=== PATIENT | male | born 1955 | race Caucasian/White ===

== ENCOUNTER 2020-03-05 04:59 | Inpatient (IN) ==
--- NOTE | 2020-02-07 15:49 | PAT Medication Instructions ---
Medication Instructions Date of Service February 07, 2020 Home Medications ascorbic acid (vitamin C) 1 g PO QAM brimonidine 1 drp OPHTHALMIC (EYE) BID cholecalciferol (vitamin D3) 10 mcg PO QAM dorzolamide (PF) 1 drp OPHTHALMIC (EYE) BID erythromycin 1 applic OPHTHALMIC (EYE) HS fluorometholone 1 drp OPHTHALMIC (EYE) QID garlic 500 mg PO QAM latanoprost (PF) 1 drp HS naproxen sodium [Aleve] 220 mg PO BID PRN sodium chloride 1 applic OPHTHALMIC (EYE) TID valacyclovir [Valtrex] 500 mg PO QAM vitamin E 400 unit PO QAM zinc 50 mg PO QAM STOP taking 2 weeks before surgery If surgery is within 2 weeks, stop taking as soon as possible. garlic 500 mg PO QAM vitamin E 400 unit PO QAM DO NOT take the morning of surgery ascorbic acid (vitamin C) 1 g PO QAM cholecalciferol (vitamin D3) 10 mcg PO QAM zinc 50 mg PO QAM Take morning of surgery With a small sip of water, OTHERWISE NOTHING TO EAT OR DRINK AFTER MIDNIGHT: brimonidine 1 drp OPHTHALMIC (EYE) BID dorzolamide (PF) 1 drp OPHTHALMIC (EYE) BID fluorometholone 1 drp OPHTHALMIC (EYE) QID sodium chloride 1 applic OPHTHALMIC (EYE) TID valacyclovir [Valtrex] 500 mg PO QAM Take evening before surgery brimonidine 1 drp OPHTHALMIC (EYE) BID dorzolamide (PF) 1 drp OPHTHALMIC (EYE) BID erythromycin 1 applic OPHTHALMIC (EYE) HS fluorometholone 1 drp OPHTHALMIC (EYE) QID latanoprost (PF) 1 drp HS sodium chloride 1 applic OPHTHALMIC (EYE) TID Other Notes If you have any questions please call us at [phone] or [phone] or [phone] or [phone]
--- NOTE | 2020-02-08 11:40 | Anesthesiology Consultation ---
Date of Service February 08, 2020 Assessment & Plan (1) Encounter for pre-operative examination: COVID Status: As of 02/07 PAT assessment, patient denies travel to endemic area, known exposure/sick contacts, or symptoms of COVID19. Preoperative COVID19 testing to be completed prior to surgery. BP significantly elevated at PAT. Note sent to PCP for this to be addressed at surgeon-ordered clearance appointment. CXR completed but not read, pending interpretation. Chart Review Chart Review: Acceptable Risk for Surgery (pending note to PCP/clearance, CXR) and Patient seen in Pre Admission Testing Teaching & Discussion Instructed NPO after midnight before surgery, except medications with 15 cc of water. Medication instructions provided according to the [facility] guidelines. History Surgery Operation Date: 03/05/20 07:15 Proposed Procedures p Right Anterior Total Hip Arthroplasty - Hilario Paredes DO Height/Weight Height: 5 ft 11 in Weight: 77.3 kg Allergies Allergy/AdvReac Type Severity Reaction Status Date / Time Penicillins Allergy Unknown Unknown Verified 01/31/20 11:47 Medications Home Medications Medication Instructions Recorded Confirmed Last Taken ascorbic acid (vitamin C) [Vitamin 1 g PO QAM 01/31/20 01/31/20 Unknown C] brimonidine 1 drp OPHTHALMIC (EYE) BID 01/31/20 01/31/20 Unknown cholecalciferol (vitamin D3) 10 mcg PO QAM 01/31/20 01/31/20 Unknown [Vitamin D3] dorzolamide (PF) 1 drp OPHTHALMIC (EYE) BID 01/31/20 01/31/20 Unknown erythromycin 1 applic OPHTHALMIC (EYE) HS 01/31/20 01/31/20 Unknown fluorometholone 1 drp OPHTHALMIC (EYE) QID 01/31/20 01/31/20 Unknown garlic 500 mg PO QAM 01/31/20 01/31/20 Unknown latanoprost (PF) 1 drp HS 01/31/20 01/31/20 Unknown naproxen sodium [Aleve] 220 mg PO BID PRN 01/31/20 01/31/20 Unknown sodium chloride 1 applic OPHTHALMIC (EYE) TID 01/31/20 01/31/20 Unknown valacyclovir [Valtrex] 500 mg PO QAM 01/31/20 01/31/20 Unknown vitamin E 400 unit PO QAM 01/31/20 01/31/20 Unknown zinc 50 mg PO QAM 01/31/20 01/31/20 Unknown Past Medical History Medical History Essential (primary) hypertension 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 No known health problems Osteoarthritis Exercise / Class Metabolic Activity II 4-5 Yardwork/Stairs/Walk up hill Past Surgical History Surgical History History of colonoscopy History of tonsillectomy Post corneal transplant X 2-LEFT EYE-S/P SHINGLES Past Anesthesia History No Hx of Anesthesia Complications and No Family Hx of Anesthesia Complications History of PONV No Hx of PONV and No Hx of Motion Sickness Social History Smoking Status: Never smoker tobacco type: smokeless tobacco Do You Dip or Chew Tobacco: Yes (1 CAN PER 4 DAYS) Hx Alcohol Use: Yes Alcohol type: beer alcohol intake frequency: 3 or more drinks per day (late afternoon-evening beers) Hx Substance Use: No Review of Systems Pt denies any recent chest pain, shortness of breath, palpitations, cough, fever or URI. Physical Exam Vital Signs BP: 176/111, rpt 178/115 pt reports he is very nervous. He will be seeing PCP for clearance 02/11 P: 91bpm SPO2: 98% RA T: 98.2 F R: 12 ENMT Mouth: no dental restorations, no chipped teeth and no loose teeth Thyromental Distance: > or= 3.5 Finger Breadths (3.5) Mallampati Class: II Neck normal visual inspection; neck extension not limited Respiratory normal respiratory effort Auscultation: lungs clear to auscultation bilaterally Cardiovascular Rate/Rhythm: regular rate and regular rhythm Heart Sounds: no murmur Extremities: no edema PMI nondisplaced. Testing Laboratory Results 02/08/20 11:48 02/08/20 11:48 PT 10.5 Seconds (9.0-12.0) 02/08/20 11:48 INR 1.0 (0.9-1.1) 02/08/20 11:48 APTT 27.7 Seconds (21.0-31.0) 02/08/20 11:48 Hemoglobin A1c 5.1 % (4.5-5.6) 02/08/20 11:48 Urine Color Yellow 02/08/20 Unknown Urine Appearance Clear (Clear) 02/08/20 Unknown Urine pH 6.5 (4.5-7.5) 02/08/20 Unknown Ur Specific [place] 1.019 (1.000-1.030) 02/08/20 Unknown Urine Protein Negative (Negative) 02/08/20 Unknown Urine Glucose (UA) Negative (Negative) 02/08/20 Unknown Urine Ketones 1+ (Negative) H 02/08/20 Unknown Urine Nitrite Negative (Negative) 02/08/20 Unknown Ur Leukocyte Esterase Negative (Negative) 02/08/20 Unknown Blood Type A Positive 02/08/20 11:48 Antibody Screen NEGATIVE 02/08/20 11:48 Electrocardiogram Date: 02/08/20 Findings: + NSR @ (81bpm with sinus arrhythmia) RA enlargement.
[2020-02-08 13:25] LABS: Basophils # (auto) 0.04 K/uL (0-0.2); Basophils % (auto) 0.5 %; Eosinophils # (auto) 0.09 K/uL (0-0.5); Eosinophils % (auto) 1.1 %; Hematocrit (blood only) 44.1 % (42-52); Hemoglobin 15.3 g/dL (14.0-18.0); Immature Granulocytes # (auto) 0.02 K/uL (0.00-0.02); Immature Granulocytes % (auto) 0.2 %; Lymphocytes # (auto) 0.99 K/uL (1.2-3.4); Lymphocytes % (auto) 12.2 %; Mean Corpuscular Hemoglobin 34.2 pg (25-34); Mean Corpuscular Hgb Conc 34.7 g/dL (32-36); Mean Corpuscular Volume 98.4 fL (80-100); Mean Platelet Volume 9.7 fL (7.4-10.4); Monocytes # (auto) 0.83 K/uL (0.11-0.59); Monocytes % (auto) 10.2 %; Neutrophils # (auto) 6.16 K/uL (1.4-6.5); Neutrophils % (auto) 75.8 %; Platelet Count 269 K/uL (130-400); RDW Coefficient of Variation 12.3 % (11.5-14.5); RDW Standard Deviation 44.2 fL (36.4-46.3); Red Blood Count 4.48 M/uL (4.7-6.1); White Blood Count 8.13 K/uL (4.8-10.8)
[2020-02-08 13:32] LABS: Albumin Level 4.2 gm/dl (3.4-5.0); BUN Creatinine Ratio 9.7 (10-20); Est GFR (African American) 112.4; Est GFR (Non-African American) 96.9
[2020-02-08 13:39] LABS: Appearance Urine Clear (Clear); Bilirubin Urine Negative (Negative); Blood Urine Negative (Negative); Color Urine Yellow; Glucose Urine UA Negative (Negative); Ketones Urine 1+ (Negative); Leukocyte Esterase Urine Negative (Negative); Nitrite Urine Negative (Negative); Protein Urine Negative (Negative); Specific Gravity Urine 1.019 (1.000-1.030); Urobilinogen Urine Negative (Negative); pH Urine 6.5 (4.5-7.5)
[2020-02-08 13:42] LABS: Estimated Average Glucose 100 mg/dl; Hemoglobin A1C 5.1 % (4.5-5.6); Partial Thromboplastin Time 27.7 Seconds (21.0-31.0); Prothrombin Time 10.5 Seconds (9.0-12.0)
--- NOTE | 2020-02-08 23:26 | Electrocardiogram Report ---
Test Reason : Blood Pressure : / mmHG Vent. Rate : 081 BPM Atrial Rate : 081 BPM P-R Int : 166 ms QRS Dur : 096 ms QT Int : 384 ms P-R-T Axes : 073 069 049 degrees QTc Int : 446 ms Normal sinus rhythm with sinus arrhythmia Right atrial enlargement Borderline ECG No previous ECGs available Confirmed by Juan Boyd ([id number]) on 02/08/2020 11:25:51 PM Referred By: Hilario Paredes Confirmed By:Juan Boyd
--- NOTE | 2020-02-09 10:47 | XRay Report ---
XR chest 2V PA/lateral CLINICAL HISTORY: Preoperative evaluation. COMPARISON STUDY: No previous studies for comparison. FINDINGS: Lung volumes are normal. Lungs are clear. There is no pneumothorax or pleural effusion. Car diac size is normal. Mediastinal contours are normal. There is no evidence for pulmonary edema. IMPRESSION: No acute cardiopulmonary findings. ACT 112: Negative or not required by law. Electronically signed by: Amilcar Martinez M.D. 02/09/2020 10:45 AM
--- NOTE | 2020-03-02 11:23 | History & Physical Report ---
Date of Service March 05, 2020 Assessment & Plan (1) Degenerative joint disease of right hip: I have indicated the patient for right anterior total hip replacement. The risks, benefits and complications of surgery were explained to the patient which include but not limited to infection, acute blood loss, DVT/PE, injury to nerves, vessels, bone, soft tissue, arthrofibrosis, chronic pain, failure of the prosthesis, hip dislocation, leg length discrepancy, need for additional surgery, cardiac and pulmonary events and . The patient wished to proceed with surgery and informed consent was obtained at this time. We will plan for 81mg ASA BID post-operatively for DVT prophylaxis. Upon discharge the patient will be discharged home with home health services. Appropriate clearances by PCP were obtained. History of Present Illness Chief Complaint: Right hip AVN/DJD Primary Care Provider: Mohsen Damian MD The patient is a 65 year old male who presents with complaints of severe right hip pain, AVN/ DJD. The patient has failed outpatient conservative treatments to this point which included NSAIDs and a home exercise.walking program. The patient's pain and limited function have progressed to the point where they severely hinder their activities of daily living and they no longer tolerate exercise programs. They are requesting to proceed with total hip replacement surgery. Allergies Allergy/AdvReac Type Severity Reaction Status Date / Time Penicillins Allergy Unknown Unknown Verified 03/05/20 06:01 Home Medications Home Medications Medication Instructions Recorded Confirmed Type ascorbic acid (vitamin C) [Vitamin 1 g PO QAM 01/31/20 03/05/20 History C] brimonidine 1 drp OPHTHALMIC (EYE) BID 01/31/20 03/05/20 History cholecalciferol (vitamin D3) 10 mcg PO QAM 01/31/20 03/05/20 History [Vitamin D3] dorzolamide (PF) 1 drp OPHTHALMIC (EYE) BID 01/31/20 03/05/20 History erythromycin 1 applic OPHTHALMIC (EYE) HS 01/31/20 03/05/20 History fluorometholone 1 drp OPHTHALMIC (EYE) QID 01/31/20 03/05/20 History garlic 500 mg PO QAM 01/31/20 03/05/20 History latanoprost (PF) 1 drp HS 01/31/20 03/05/20 History naproxen sodium [Aleve] 220 mg PO BID PRN 01/31/20 03/05/20 History sodium chloride 1 applic OPHTHALMIC (EYE) TID 01/31/20 03/05/20 History valacyclovir [Valtrex] 500 mg PO QAM 01/31/20 03/05/20 History vitamin E 400 unit PO QAM 01/31/20 03/05/20 History zinc 50 mg PO QAM 01/31/20 03/05/20 History Past Med/Surg History Medical History Essential (primary) hypertension 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 Osteoarthritis Surgical History History of colonoscopy History of tonsillectomy Post corneal transplant X 2-LEFT EYE-S/P SHINGLES Social History Preferred Language: Uzbek Communication Ability: Effective Sealer Operator Required: No Beliefs That Will Affect Care: None Current Living Situation: Spouse Other Information That Helps Us Care for You: No Feels Safe at Home: Yes Safety Concerns: Feels Safe At This Time Smoking Status: Never smoker Tobacco Type: smokeless tobacco ; Do You Dip or Chew Tobacco: Yes (1 CAN PER 4 DAYS) ; Second Hand Exposure: Yes ( A CHILD- FATHER) ; Hx Alcohol Use: Yes Alcohol type: beer Hx Substance Use: No Review of Systems Review of Systems: All systems reviewed & are unremarkable except as noted in HPI & below Constitutional: as per Subjective / HPI Physical Exam Physical Exam: RLE NVSI +EHL/FHL/TA/GS SILT grossly, +2 DP pulse, compartments soft NT, limited painful ROM of the hip, antalgic gait. Constitutional: WD/WN, vitals as above Eyes: PERRL, conjunctivae normal, anicteric sclerae ENMT: external ear and nose normal, oropharynx normal Neck: trachea midline, no thyromegaly Respiratory: normal respiratory effort, lungs clear to auscultation Cardiovascular: RRR, no murmur, no edema Gastrointestinal (Abdomen): normal bowel sounds, soft, nontender, no hepatosplenomegaly Musculoskeletal: no cyanosis or clubbing, extremities motor strength 5/5 Skin: no rashes, warm and dry Neurologic: patellar DTR's 2+ bilat, sensation intact Psychiatric: A+Ox3, euthymic affect Lymphatic: no cervical or axillary lymphadenopathy Results & Data Results & Data ([facility]) Diagnostic Findings Multiple views of the hip demonstrates severe DJD and AVN involving the femoral head with cortical irregularity/collapse, complete loss of the joint space. +osteophytes, +sclerosis, +subchondral cysts.
[2020-03-05] MEDS ORDERED: LR 500ML BOLUS, THEN 15ML/HR IV SCH (06:00)
[2020-03-05] MEDS ORDERED: FAMOTIDINE 20 MG TAB PO SCH (06:00)
[2020-03-05] MEDS ORDERED: TRANEXAMIC ACID 1,000 MG **IV Pre-op IV SCH (06:00)
[2020-03-05] MEDS ORDERED: LR 60ML/HR IV SCH (06:00)
[2020-03-05] MEDS ORDERED: TRANEXAMIC ACID 1,000 MG **IV Intra-op IV SCH (06:00)
[2020-03-05] MEDS ORDERED: ACETAMINOPHEN 500 MG TAB PO SCH (06:00)
[2020-03-05] MEDS ORDERED: ROPIVACAINE 0.5% HCL/PF 150 MG, BUPIVACAINE 0.5% MPF 30 ML, EPINEPHrine 30MG/30ML (OR U... INFIL SCH (06:00)
[2020-03-05] MEDS ORDERED: GABAPENTIN 600 MG DOSE PO SCH (06:00)
[2020-03-05] MEDS ORDERED: CeleBREX 200 MG CAP PO SCH (06:00)
[2020-03-05] MEDS ORDERED: METOCLOPRAMIDE HCL 10 MG TABLET PO SCH (06:00)
[2020-03-05] MEDS ORDERED: VANCOMYCIN HCL 1,000 MG/270 ML BAG IV SCH (06:00)
[2020-03-05] MEDS ORDERED: dexAMETHasone 4 MG TAB PO SCH (06:00)
[2020-03-05] MEDS ORDERED: MIDAZOLAM HCL 1 MG/ML 2ML VIAL ONE (06:30)
[2020-03-05] MEDS ORDERED: BUPIVACAINE 0.5 % 5 MG/1 ML PF 10ML VIAL ONE (06:34)
[2020-03-05] MEDS ORDERED: ePHEDrine sulfate 50 MG/ML AMP IV PRN (06:55)
[2020-03-05] MEDS ORDERED: ONDANSETRON INJ 2 MG/ML 2 ML VIAL IV PRN ×2 (06:55→10:23)
[2020-03-05] MEDS ORDERED: ATROPINE SULFATE 0.1 MG/ML 10ML SYR IV PRN (06:55)
[2020-03-05] MEDS ORDERED: HYDROmorphone INJ 2 MG/ML SYR/VIAL IV PRN (06:55)
[2020-03-05] MEDS ORDERED: fentaNYL citrate 100 MCG/2 ML VIAL IV PRN (06:55)
--- NOTE | 2020-03-05 07:08 | History & Physical Bridge Note ---
Date of Service March 05, 2020 History & Physical Bridge Note I have examined the patient, reviewed the History & Physical and in the interval since the performance of the History & Physical I have noted the following changes of clinical significance: no changes noted
[2020-03-05] MEDS ORDERED: BACITRACIN INJ 50,000 UNIT VIAL ONE (07:21)
[2020-03-05] MEDS ORDERED: ORTHO JOINT ANESTHETIC ONE (07:21)
[2020-03-05] MEDS ORDERED: PROPOFOL IV EMULSION 10 MG/ML 20 ML VIAL IV ONE (07:51)
[2020-03-05] MEDS ORDERED: ePHEDrine sulfate 50 MG/ML SYR ONE (07:51)
[2020-03-05] MEDS ORDERED: ONDANSETRON INJ 2 MG/ML 2 ML VIAL ONE (07:51)
[2020-03-05] MEDS ORDERED: LIDOCAINE HCL 2% 2 ML VIAL/AMP(20MG/ML) INFIL ONE (07:51)
[2020-03-05] MEDS ORDERED: GLYCOPYRROLATE 0.2 MG/ML VIAL ONE (07:51)
[2020-03-05] MEDS ORDERED: DEXAMETHASONE SOD INJ 4 MG/ML VIAL ONE (07:51)
[2020-03-05] MEDS ORDERED: PHENYLEPHRINE 100MCG/ML 5ML SYR ONE (08:35)
--- NOTE | 2020-03-05 09:09 | Post Operative Brief Note ---
Immediate Post Op Note v1 Date of Surgery March 05, 2020 Pre & Post Diagnosis Operation Date: 03/05/20 07:30 Pre-Op Diagnosis: Right Hip Osteoarthritis Post-Op Diagnosis: Right Hip Osteoarthritis I identified the patient and participated in the time-out.: Yes Procedure Operation Date: 03/05/20 07:30 Actual Procedures p Right Anterior Total Hip Arthroplasty(Right) - Hilario Paredes DO Surgeon Hilario Paredes DO Timber Surveyor Eduardo Freeman Estimated Blood Loss 135 Findings Consistent with Post-Op Diagnosis Fluids 1500 cc LR Specimens Femoral head Anesthesia Type Spinal MAC Complications none Disposition Disposition: Recovery Room Overlapping Procedure I was present for: the critical portions of procedure. I was immediately available: during the entire case. Back up surgeon: was not required during procedure.
--- NOTE | 2020-03-05 09:11 | Operative Report ---
Post Operative Report Pre & Post Diagnosis Operation Date: 03/05/20 07:30 Pre-Op Diagnosis: Right Hip Osteoarthritis Post-Op Diagnosis: Right Hip Osteoarthritis I identified the patient and participated in the time-out.: Yes Procedure Operation Date: 03/05/20 07:30 Actual Procedures p Right Anterior Total Hip Arthroplasty(Right) - Hilario Paredes DO Surgeon Hilario Paredes DO Dry Cleaning Teacher Eduardo Freeman Estimated Blood Loss 135 Findings Consistent with Post-Op Diagnosis Fluids 1500 cc LR Specimens Femoral head Anesthesia Type Spinal MAC Complications none Disposition Disposition: Recovery Room Indications The patient is a 65-year-old female who presents with severe progressive right hip AVN/DJD who has failed outpatient conservative treatments. I indicated the patient for a anterior total hip replacement and the risks and benefits were explained in detail which include but not limited to infection, bleeding, blood clot, damage to surrounding bone, nerves, vessels, soft tissue, hip dislocation, failure of the prosthesis, leg length discrepancy, need for additional surgery and . The patient agreed to proceed with replacement of the hip and informed consent was obtained. Appropriate clearances were obtained. Description of Procedure COMPONENTS USED: [place] [employer] hip system: Acetabulum size 56, femur size 8 high offset, femoral head 36+4, liner 5630, acetabular screw 25 mm x 1. DESCRIPTION OF PROCEDURE: Following satisfactory spinal anesthesia, the patient was placed supine on the OR table. The left leg was placed in the well leg alfaro and the right leg in the traction device. The right leg was prepared with ChloraPrep and draped sterilely. A surgical timeout was performed, patient identified and site leo verified. Appropriate antibiotics were given. A standard anterior approach in the interval between the sartorius and tensor muscles was performed. Dissection was carried down through subcutaneous tissues. Electrocautery was utilized for hemostasis. Circumflex femoral vessels were identified, tied and ligated. The anterior capsular fat pad was removed and the capsulotomy was performed revealing the arthritic femoral neck and head. A femoral neck cut was made with reciprocating saw and the bone fragments removed. The acetabular self-retraining retractor was placed. Acetabular reaming was completed under fluoroscopic guidance, a 56 shell was impacted into an anatomic position and secured with a dome screw. Local anesthetic was placed and following irrigation, the polyethylene liner was placed. The femur was placed into position of external rotation, extension and adduction. Femoral canal was prepared up to the size 8 high offset. Trial red uction with a 36+4 neck length head showed good soft tissue tension, leg lengths restored, and good fit and fill of the proximal canal using fluoroscopic landmarks. The hip was dislocated. The trial component was removed. The final implant was placed. The hip was irrigated with sterile saline solution and reduced. A Betadine soak was performed. After 3 minutes, the hip was once more irrigated with copious sterile saline solution with bacitracin. Manuela-incisional soft tissue was injected utilizing [place] Orthomix which includes a combination of Ropivicaine 0.5% 150mg, Bupivicaine 0.5%/Epinephrine 1:200,000 30ml, Toradol 30mg, Dexamethasone 4mg, Ketamine 10mg, Clonidine 100mcg and NSS 30ml solution. The capsule was then closed with 1-0 Vicryl interrupted figure of eight sutures. The fascia was closed with a running suture of #1 Vicryl, the subcutaneous tissues with 2-0 Vicryl and the skin jerrica. A sterile dry dressing was applied which included Aggie incisional VAC. The patient tolerated the procedure well and was transported to PACU in stable condition. Due to the complex nature of the procedure, the entire surgery was performed with the operational assistance of Eduardo Freeman PA-C. The greenhouse assistant, under direct supervision, was involved in the actual performance of all aspects of the surgical procedure including patient positioning, hemostasis, tissue retra ction, instrument management and wound closure. I attest to the content of the Intraoperative Record and any orders documented therein. Any exceptions are noted below.
--- NOTE | 2020-03-05 09:34 | Fluoroscopy Report ---
FL hip RT 1V CLINICAL HISTORY: RT ANTERIOR HIP COMPARISON STUDY: None FLUOROSCOPY TIME: 48 seconds. NUMBER OF FLUOROSCOPIC IMAGES: 2 FINDINGS: 2 intraoperative fluoroscopic spot images demonstrating a total right hip arthroplasty. IMPRESSION: Intraoperative fluoroscopic spot images demonstrating a total right hip arthroplasty. ACT 112: Negative or not required by law. Electronically signed by: Sandor Henley M.D. 03/05/2020 9:32 AM
--- NOTE | 2020-03-05 09:41 | XRay Report ---
XR hip 1V RT w pelvis CLINICAL HISTORY: IN PACU - A/P PELVIS and LATERAL HIP COMPARISON: Intraoperative study performed the same day DISCUSSION: There are postsurgical changes of a total right hip arthroplasty. There is no dislocation . There are overlying skin jerrica. There is air present within the soft tissues consistent with rece nt surgery. IMPRESSION: Postsurgical changes of a total right hip arthroplasty. No evidence of dislocation. ACT 112: Negative or not required by law. Electronically signed by: Sandor Henley M.D. 03/05/2020 9:40 AM
--- NOTE | 2020-03-05 09:57 | Anesthesiology Progress Note ---
Date of Service March 05, 2020 Anesthesia Post Procedure Vital Signs Vital Signs: Temp Pulse Pulse Resp BP BP Pulse Ox 03/05/20 09:45 79 21 127/82 95 03/05/20 09:35 79 19 106/74 98 03/05/20 09:26 36.7 C 84 12 113/79 99 03/05/20 06:50 74 135/88 99 03/05/20 06:07 36.7 C 84 18 140/101 H 99 Pain Intensity Left Hand: Pain Intensity: 2 Transfer of Care Handoff Completed per policy Notes Mental Status: alert / awake / arousable and participated in evaluation Patient Amnestic to Procedure: Yes Nausea / Vomiting: adequately controlled Pain: adequately controlled Airway Patency, RR, SpO2: stable & adequate BP & HR: stable & adequate Hydration State: stable & adequate Anesthetic Complications: no major complications apparent and Pt Satisfied with anesthetic care
[2020-03-05] MEDS ORDERED: bisacodyL 10 MG SUPP PR PRN (10:23)
[2020-03-05] MEDS ORDERED: HYDROmorphone INJ 0.5 MG/0.5 ML SYR IV PRN (10:23)
[2020-03-05] MEDS ORDERED: OXYCODONE HCL IR 5 MG TAB (IMMEDIATE RELEASE) PO PRN (10:23)
[2020-03-05] MEDS ORDERED: NALOXONE HCL 0.4 MG/1 ML VIAL/CARP IV PRN (10:23)
[2020-03-05] MEDS ORDERED: VANCOMYCIN CONSULT ACTIVE PRN (10:23)
[2020-03-05] MEDS ORDERED: METOCLOPRAMIDE HCL INJ 5 MG/ML 2 ML VIAL IV PRN (10:23)
[2020-03-05] MEDS ORDERED: MAGNESIUM HYDROXIDE SUSP 30 ML UDC PO PRN (10:23)
[2020-03-05] MEDS: SODIUM CHLORIDE 0.9% 1000ML 1,000 ML IV SCH ×2 (10:53→21:19)
[2020-03-05] MEDS: KETOROLAC TROMETHAMINE 15 MG/ML VIAL IV SCH ×3 (11:32→23:42)
[2020-03-05] MEDS: FLUOROMETHOLONE 0.1% OPL SCH ×3 (12:58→21:27)
--- NOTE | 2020-03-05 13:14 | XRay Report ---
XR hip RT min 2V CLINICAL HISTORY: please check more views of left hip, int/ext COMPARISON: None. DISCUSSION: Anatomic alignment post total right hip arthroplasty. good contact between prosthetic and underlying bone. Expected postoperative soft tissue change IMPRESSION: Anatomic alignment post total right hip arthroplasty. ACT 112: Negative or not required by law. The above report was generated using voice recognition software. It may contain grammatical, syntax or spelling errors. Electronically signed by: Esdras Mak M.D. 03/05/2020 1:13 PM
[2020-03-05] MEDS: ACETAMINOPHEN 500 MG TAB PO SCH ×2 (13:47→21:16)
[2020-03-05] MEDS: SODIUM CHLORIDE 5% (MURO) OP OINT 3.5 GM TUBE OPL SCH ×2 (13:48→17:26)
[2020-03-05] MEDS: POM - DORZOLAMIDE/TIMOLOL 22.3/6.8MG/ML 10 ML BTL OPL SCH (17:26)
[2020-03-05] MEDS: BRIMONIDINE TARTRATE 0.2% 5ML OPL SCH (17:28)
[2020-03-05] MEDS ORDERED: VANCOMYCIN HCL 1,250 MG in SODIUM CHLORIDE 0.9% 250 ML IV SCH (18:00)
--- NOTE | 2020-03-05 20:45 | Orthopedic Progress Note ---
Date of Service March 05, 2020 Assessment & Plan (1) Degenerative joint disease of right hip: s/p R anterior OUMOU -Vancomycin x24 -DVT ppx: SCDs, TEDs, 81 mg ASA BID -WBAT RLE -PT/OT -PO XR demonstrates well aligned well fixed prothesis without fracture/dislocation. -am labs -DC planning Admission and Anticipated Discharge Date Admission Date: March 05, 2020 Subjective Post Operative Progress Note Patient seen sitting in chair at bedside, comfortable, denies complaints, pain well controlled, no acute issues. Review of Systems Review of Systems: All systems reviewed & are unremarkable except as noted in HPI & below Constitutional: as per Subjective / HPI Physical Exam Physical Exam: RLE NVSI +EHL/FHL/TA/GS SILT grossly, +2 DP pulse, compartments soft NT, dressing cdi. Constitutional: WD/WN, vitals as above Results & Data ([facility]) Vital Signs (Past 12 Hours) Vital Signs Temp Pulse Pulse Resp BP Pulse Ox 03/05/20 18:40 36.9 C 84 19 146/93 H 98 03/05/20 14:48 36.3 C L 89 20 152/89 H 97 03/05/20 13:15 36.4 C L 80 16 132/80 99 03/05/20 12:10 77 16 125/79 97 03/05/20 11:05 67 16 121/80 100 03/05/20 10:50 61 16 126/79 98 03/05/20 10:15 36.5 C 84 16 119/76 98 03/05/20 09:55 37.0 C 75 12 124/76 96 03/05/20 09:45 79 21 127/82 95 03/05/20 09:35 79 19 106/74 98 03/05/20 09:26 36.7 C 84 12 113/79 99
[2020-03-05] MEDS ORDERED: LATANOPROST 0.005% OPL SCH (21:00)
[2020-03-05] MEDS ORDERED: BRIMONIDINE TART 0.2% OP SOLN PER DROP CHARGE OP SCH (21:00)
[2020-03-05] MEDS ORDERED: ERYTHROMYCIN OP OINT 5 MG/GM 3.5 GM TUBE OPL SCH (21:00)
[2020-03-05] MEDS: SENNA 8.6 MG TAB PO SCH ×2 (21:16→21:18)
[2020-03-05] MEDS: DOCUSATE SODIUM 100 MG CAP PO SCH (21:17)
[2020-03-06] MEDS: ACETAMINOPHEN 500 MG TAB PO SCH ×2 (05:35→13:42)
[2020-03-06] MEDS: KETOROLAC TROMETHAMINE 15 MG/ML VIAL IV SCH (05:36)
[2020-03-06 05:59] LABS: Basophils # (auto) 0.02 K/uL (0-0.2); Basophils % (auto) 0.1 %; Hematocrit (blood only) 40.3 % (42-52); Hemoglobin 13.8 g/dL (14.0-18.0); Immature Granulocytes # (auto) 0.04 K/uL (0.00-0.02); Immature Granulocytes % (auto) 0.3 %; Lymphocytes # (auto) 1.14 K/uL (1.2-3.4); Lymphocytes % (auto) 7.4 %; Mean Corpuscular Hemoglobin 33.2 pg (25-34); Mean Corpuscular Hgb Conc 34.2 g/dL (32-36); Mean Corpuscular Volume 96.9 fL (80-100); Mean Platelet Volume 9.4 fL (7.4-10.4); Monocytes # (auto) 1.24 K/uL (0.11-0.59); Neutrophils # (auto) 13.01 K/uL (1.4-6.5); Neutrophils % (auto) 84.2 %; Platelet Count 292 K/uL (130-400); RDW Coefficient of Variation 12.1 % (11.5-14.5); RDW Standard Deviation 42.8 fL (36.4-46.3); Red Blood Count 4.16 M/uL (4.7-6.1); White Blood Count 15.45 K/uL (4.8-10.8)
[2020-03-06 06:27] LABS: BUN Creatinine Ratio 10.3 (10-20); Calcium 8.5 mg/dl (8.5-10.1); Creatinine Clr Calc Pharmacy 84.6 ml/min; Est GFR (African American) 98.9; Est GFR (Non-African American) 85.3; Potassium 3.7 mmol/L (3.5-5.1)
[2020-03-06] MEDS: POM - DORZOLAMIDE/TIMOLOL 22.3/6.8MG/ML 10 ML BTL OPL SCH (07:43)
[2020-03-06] MEDS: FLUOROMETHOLONE 0.1% OPL SCH ×2 (07:44→12:13)
[2020-03-06] MEDS: SODIUM CHLORIDE 5% (MURO) OP OINT 3.5 GM TUBE OPL SCH ×2 (07:44→13:11)
[2020-03-06] MEDS: BRIMONIDINE TARTRATE 0.2% 5ML OPL SCH (07:50)
[2020-03-06] MEDS: DOCUSATE SODIUM 100 MG CAP PO SCH (08:54)
[2020-03-06] MEDS ORDERED: ASPIRIN 81 MG ECTAB PO SCH (09:00)
[2020-03-06] MEDS ORDERED: MULTIVITAMIN TAB PO SCH (09:00)
[2020-03-06] MEDS ORDERED: VALACYCLOVIR HCL 500 MG TABLET PO SCH (09:00)
--- NOTE | 2020-03-06 09:24 | Orthopedic Progress Note ---
Date of Service March 06, 2020 Assessment & Plan (1) Degenerative joint disease of right hip: s/p R anterior OUMOU POD#1 -Vancomycin x24 -DVT ppx: SCDs, TEDs, 81 mg ASA BID -WBAT RLE -PT/OT -PO XR demonstrates well aligned well fixed prothesis without fracture/dislocation. -am labs - as above, hgb 13.8 -DC planning - home with HH Admission and Anticipated Discharge Date Admission Date: March 05, 2020 Subjective Post Operative Progress Note Patient seen sitting in bed, comfortable, denies complaints, pain well controlled, no acute issues. Denies F/C/N/V/SOB/CP. Review of Systems Review of Systems: All systems reviewed & are unremarkable except as noted in HPI & below Constitutional: as per Subjective / HPI Physical Exam Physical Exam: RLE NVSI +EHL/FHL/TA/GS SILT grossly, +2 DP pulse, compartments soft NT, dressing cdi. Constitutional: WD/WN, vitals as above Results & Data ([facility]) Vital Signs (Past 12 Hours) Vital Signs Temp Pulse Resp BP Pulse Ox 03/06/20 08:02 36.6 C 64 16 150/86 H 97 03/06/20 03:09 36.6 C 77 16 131/84 99 03/05/20 23:33 36.5 C 67 18 153/86 H 98 Laboratory Results 03/06/20 03/06/20 Range/Units 05:26 05:26 WBC 15.45 H (4.8-10.8) K/uL RBC 4.16 L (4.7-6.1) M/uL Hgb 13.8 L (14.0-18.0) g/dL Hct 40.3 L (42-52) % MCV 96.9 (80-100) fL MCH 33.2 (25-34) pg MCHC 34.2 (32-36) g/dL RDW Std Deviation 42.8 (36.4-46.3) fL RDW Coeff of Nicole 12.1 (11.5-14.5) % Plt Count 292 (130-400) K/uL MPV 9.4 (7.4-10.4) fL Immature Gran % (Auto) 0.3 % Neut % (Auto) 84.2 % Lymph % (Auto) 7.4 % Gulf % (Auto) 8.0 % Eos % (Auto) 0.0 % Baso % (Auto) 0.1 % Neut # (Auto) 13.01 H (1.4-6.5) K/uL Lymph # (Auto) 1.14 L (1.2-3.4) K/uL [place] # (Auto) 1.24 H (0.11-0.59) K/uL Eos # (Auto) 0.00 (0-0.5) K/uL Baso # (Auto) 0.02 (0-0.2) K/uL Immature Gran # (Auto) 0.04 H (0.00-0.02) K/uL Sodium 135 L (136-145) mmol/L Potassium 3.7 (3.5-5.1) mmol/L Chloride 102 (98-107) mmol/L Carbon Dioxide 25 (21-32) mmol/L Anion Gap 8.0 (3-11) BUN 10 (7-18) mg/dl Creatinine 0.94 (0.6-1.4) mg/dl Est Cr Clr Drug Dosing 84.6 ml/min Est GFR ( Amer) 98.9 Est GFR (Non-Af Amer) 85.3 BUN/Creatinine Ratio 10.3 (10-20) Glucose 109 H (70-99) mg/dl Calcium 8.5 (8.5-10.1) mg/dl
[2020-03-06] MEDS ORDERED: CeleBREX 200 MG CAP PO SCH (21:00)
--- NOTE | 2020-03-06 21:15 | Discharge Summary ---
Date of Service March 06, 2020 Admission HPI Per Admitting Provider The patient is a 65 year old male who presents with complaints of severe right hip pain, AVN/ DJD. The patient has failed outpatient conservative treatments to this point which included NSAIDs and a home exercise.walking program. The patient's pain and limited function have progressed to the point where they severely hinder their activities of daily living and they no longer tolerate exercise programs. They are requesting to proceed with total hip replacement surgery. Principal Diagnosis Right anterior total hip replacement -Right hip AVN/DJD Discharge Exam RLE NVSI +EHL/FHL/TA/GS SILT grossly, +2 DP pulse, compartments soft NT, dressing cdi. Constitutional WD/WN, vitals as above Discharge Data Allergies Allergy/AdvReac Type Severity Reaction Status Date / Time Penicillins Allergy Unknown Unknown Verified 03/05/20 06:01 Consultations 03/06/20 08:00 Consult Case Management - Discharge Planning Routine Procedures Performed Operation Date: 03/05/20 07:30 Actual Procedures p Right Anterior Total Hip Arthroplasty(Right) - Hilario Paredes DO Ordered Studies 03/05/20 07:30 FL fluoroscopy <1hr Routine FL hip RT 1V Routine Hospital Course (1) Degenerative joint disease of right hip: The patient is a 65 -year-old male who presents with long standing history of severe right hip AVN/ DJD and failed outpatient conservative treatments. The patient's symptoms have progressed to the point where it has been difficult to perform even normal activities of daily living. I indicated the patient for a Right anterior total hip arthroplasty, the risks, benefits and complications of the procedure include but not limited to infection, bleeding, damage to bone, nerves, vessels, surrounding soft tissue, may develop blood clots, loss of function, leg length discrepancy, dislocation, failure of the components, loosening of the components, the need for additional surgery and . The patient wished to proceed with surgery at this time and informed consent was obtained. Hospital Course: On 03/05/20 the patient was taken to the operating room, adequate anesthesia administered and underwent a right anterior total hip arthroplasty. The patient tolerated the procedure well and was taken to the PACU in stable condition. Post-operatively the patient was started on a DVT ppx medication and given appropriate IV antibiotics. Consults were placed to physical therapy, occupational therapy and case management. On POD#1, the patient did well overnight and their pain was well controlled. Labs were drawn and the Hgb was 13.8. The patient progressed well with PT. Dressings were changed at this time and the incision was clean, dry and intact. The patients hospital stay was relatively uneventful and they were deemed stable by the orthopedic team and consultants to be discharged home with HH on 03/06/20. Discharge Instructions: Upon discharge the patient may weight bear as tolerates through their operative extremity. They were instructed to keep the incision clean and dry at all times. The patient may shower but should not submerge the incision, avoid bathing, pools and hot tubes. The patient was given a script for pain medication and should take as instructed. The patient was given a script for DVT ppx 81mg ASA BID and should take as directed. The patient was instructed to not drive or travel for long distances until cleared to do so. If the patient develops any symptoms of fevers, chills, nausea, vomiting, increased redness, swelling, pain or drainage from the surgical site, they should notify the office and/or proceed to the nearest emergency room. The patient should follow up in 10-14 days after surgery for their routine post-operative follow-up appointment and should call the office to confirm the date and time. s/p R anterior OUMOU POD#1 -Vancomycin x24 -DVT ppx: SCDs, TEDs, 81 mg ASA BID -WBAT RLE -PT/OT -PO XR demonstrates well aligned well fixed prothesis without fracture/dislocation. -am labs - as above, hgb 13.8 -DC planning - home with Total Time Total Time Spent Total Time Spent (In Minutes): 30 Discharge Plan Discharge Items Patient Disposition: Home - Home Health Services Reason For Visit: Right Hip Osteoarthritis Discharge Diagnosis: Right anterior total hip replacement -Right hip DJD Condition on Discharge: Good Activity: Per Instructions section Lifting: Wait until after follow-up appointment Bathing: Keep incision dry Bathing Comment: No bathing, pools or hot tubs. Sexual Activity: Wait until after follow-up appointment Exercise/Sports: Wait until after follow-up appointment Driving/Machine Use: No driving Weightbearing: Full weightbearing Non-emergency contact: Primary Care Provider and Surgeon Call non-emergency contact if: you have any medication questions, your symptoms worsen, your pain is not controlled, your pain is worsening, your pain is unusual for you, your pain is concerning for you, you have a fever, your temperature is above 101, your wound has increased redness, your wound has increased drainage and your wound pain has increased Follow-up/Referrals: Mohsen Damian MD [Primary Care Provider] - Diet: Regular Addtl Attending Provider Instructions: ACTIVITY RECOMMENDATIONS: SELF CARE INSTRUCTIONS AFTER TOTAL HIP REPLACEMENT : Direct Anterior Approach Until the incision and soft tissues around your hip have healed, there is a possibility that the hip prosthesis could dislocate. A. Hip flexion ( Up & Down out of chair or steps ) may be difficult. This is normal. B. Numbness in front of the thigh is also normal for a few weeks. C. Use hand rails when walking on stairs. D. Wear low heeled shoes with non-slip soles. E. Be sure that your floors are free of things that could trip you - throw rugs, electrical cords, small objects. Avoid wet and waxed floors, especially with crutches and canes. F. Try to walk several times a day with rest periods between. G. Continue with all the exercises taught to you in the hospital. Again, make walking a part of your daily routine. SPECIAL CARE INSTRUCTIONS: VERY IMPORTANT TO READ AND REVIEW A. You may still be at risk for phlebitis and blood clots. 1. Wear surgical stockings (MIKY hose) for 2 weeks after surgery to improve circulation and reduce swelling. 2. Take Aspirin 81mg twice daily for 4 weeks or as directed by your doctor. This is your blood thinner. 3. High risk patients may be prescribed a stronger blood thinner if necessary. 4. If you are on Coumadin normally, your family doctor/screw remover should monitor your blood work. Expect a phone call the day of or the day after bloodwork is drawn to adjust your dosage. B. You must take antibiotics before having dental work, bladder, bowel and other surgery. Your doctor will provide you with a permanent card to carry describing precautions. C. Call [facility] if you have a fever, redness or swelling around the incision, cloudy drainage from incision, or sudden increase in pain in your hip, not relieved by your regular pain medication. D. Please call the office at if you have any concerns or questions about your operation or recovery. * YOU MAY SHOWER, NO TUB BATHS UNTIL CLEARED BY YOUR DOCTOR. - Keep an extra close eye on the top portion of your incision. Be sure to keep clean & dry. * WEAR MIKY HOSE 20 HOURS PER DAY FOR 2 WEEKS. * YOU MAY PROGRESS FROM A WALKER, TO A CANE, TO INDEPENDENT AT YOUR OWN PACE. * MOST PATIENTS WILL HAVE HOME NURSING FOR THERAPY. IF YOU DECIDE TO DO OUTPATIENT PHYSICAL THERAPY, PLEASE SCHEDULE THIS 3 TIMES PER WEEK. *PREVENA incisional vac is a special dressing covering your incision. This dressing provides a sterile dry environment while you are healing. The dressing is to be left in place for 7 days post-operatively. Your home nurse or surgeon will remove. If you develop any redness or blisters or have any questions notify your surgeon immediately. FOLLOW UP VISIT: If appointment is not already scheduled: Please call [facility] to make a follow-up appointment for 2 weeks after your surgery at . Pending Studies at Discharge: No Stand-Alone Forms: My [facility], Opioid Pain Management, Smoking Cessation Medications and DC Order Prescriptions: New celecoxib [Celebrex] 200 mg Capsule 200 mg PO BID PRN (Reason: pain/inflammation) Qty: 28 RF: 0 aspirin 81 mg Tablet,Delayed Release (Dr/Ec) 81 mg PO BID Qty: 56 RF: 0 acetaminophen 500 mg Tablet 1,000 mg PO Q8 PRN (Reason: pain/fevers) Qty: 90 RF: 0 oxycodone 5 mg Tablet 5 mg PO Q6H MDD 4 PRN (Reason: pain) Qty: 30 RF: 0 sennosides [Senokot] 8.6 mg Tablet 17.2 mg PO HS PRN (Reason: constipation) Qty: 28 RF: 0 Continued ascorbic acid (vitamin C) [Vitamin C] 1,000 mg Tablet 1 g PO QAM RF: 0 valacyclovir [Valtrex] 500 mg Tablet 500 mg PO QAM RF: 0 garlic 500 mg Capsule 500 mg PO QAM RF: 0 erythromycin 5 mg/gram (0.5 %) Ointment 1 applic OPHTHALMIC (EYE) HS RF: 0 fluorometholone 0.1 % Drops,Suspension 1 drp OPHTHALMIC (EYE) QID RF: 0 brimonidine 0.2 % Drops 1 drp OPHTHALMIC (EYE) BID RF: 0 zinc 50 mg Tablet 50 mg PO QAM RF: 0 vitamin E 400 unit Capsule 400 unit PO QAM RF: 0 cholecalciferol (vitamin D3) [Vitamin D3] 10 mcg (400 unit) Capsule 10 mcg PO QAM RF: 0 latanoprost (PF) 0.005 % Drops 1 drp HS RF: 0 dorzolamide (PF) 2 % Drops 1 drp OPHTHALMIC (EYE) BID RF: 0 sodium chloride 5 % Ointment 1 applic OPHTHALMIC (EYE) TID RF: 0 Discontinued naproxen sodium [Aleve] 220 mg Capsule 220 mg PO BID PRN (Reason: Pain) RF: 0 Discharge Orders: Discharge Order (Routine); Ordered 03/06/20 Ordered By: Hilario Yost/Other Patient Handouts: DVT Post Op Prevention Admission Data Admit Date/Time: 03/05/20 09:26 Attending Provider: Hilario Paredes Admit Provider: Hilario Paredes Primary Care Provider: Mohsen Damian I. Other Interventions: Discharge Summary Assessment (RN) Last Done: 03/06/20 10:12 DC Date/Time DO NOT enter until pt leaves facility: 03/06/20 14:26
== END 2020-03-06 14:26 | disposition home health service (06) | DRG 470 ==
LOC: ASU 04:59 → 3E 09:26